=== PATIENT | female | born 1980 | race Caucasian/White ===

== ENCOUNTER → 2016-07-20 | Outpatient (CLI) | payer MEDICARE, BC ==
[~2016-07-20] MED LIST: ADALAT CC90 MG PO; BAYER CHILD81 MG PO; FEXOFENADINE H180 MG PO; GABAPENTIN600 MG PO; LASIX20 MG PO; LEVOTHROID (S100 MCG PO; LINZESS145 MCG PO; LISINOPRIL10 MG PO; NAPROXEN250 MG PO; NEURONTIN600 MG PO; NEXIUM40 MG PO; NUCYNTA50 MG PO; PAIN RELIEF650 MG PO; PATANOL 0.1% DR0.1 % OPHTH; PHENTERMINE H37.5 M1 PO; PREDNISONE5 MG PO; PRISTIQ50 MG PO; SINGULAIR10 MG PO; TOPAMAX100 MG PO
== END | disposition disaster alternative care site (69) ==
LOC: GRAD 12:38
DX: M54.17 Radiculopathy, lumbosacral region (principal); M47.26 Other spondylosis with radiculopathy, lumbar region